=== PATIENT | male | born 1960 | race Asian ===

== ENCOUNTER 2018-11-21 09:46 | Day surgery (SDC) | payer OTHER ==
[2018-11-21] MEDS ORDERED: MIDAZOLAM 1 MG/ML 2 ML INJ (12:28)
[2018-11-21] MEDS ORDERED: FENTAnyl 50 MCG/ML VIAL (12:28)
== END 2018-11-21 16:13 | disposition home or self-care (01) ==
LOC: GIL 09:46
DX: Z12.11 Encounter for screening for malignant neoplasm of colon (principal); K64.8 Other hemorrhoids; E11.9 Type 2 diabetes mellitus without complications
CPT/HCPCS: 45378